=== PATIENT | female | born 1955 | race Caucasian/White ===

== ENCOUNTER 2019-03-20 10:04 | Day surgery (SDC) | payer OTHER ==
[2019-03-20] MEDS ORDERED: PROPOFOL 100 ML (12:33)
[2019-03-20] MEDS ORDERED: FENTAnyl 50 MCG/ML VIAL (12:34)
[2019-03-20] MEDS ORDERED: LIDOCAINE 2% (SDV) 5 ML INJ (12:34)
[2019-03-20] MEDS: CEFAZOLIN 2 GM/50 ML (PMX) 50 ML IVPB (12:40)
[2019-03-20] MEDS ORDERED: CEFAZOLIN 1 GM INJ (12:51)
[2019-03-20] MEDS: BUPIVACAINE 0.25% (MPF) 30 ML INJ (13:05)
[2019-03-20 13:13] LABS: ADD MAN DIFF? NO
[2019-03-20 13:16] LABS: WHITE BLOOD COUNT 5.2 10^3/ul (4.8-10.8)
[2019-03-20 13:16] LABS: BASOPHILS % 0.6 % (0.0-2.0); EOSINOPHILS # 0.2 10^3/ul (0.0-0.5); EOSINOPHILS % 2.9 % (0.0-7.0); HEMATOCRIT 39.5 % (37.0-47.0); HEMOGLOBIN 13.2 g/dl (12.0-16.0); LYMPHOCYTES # 1.7 10^3/ul (0.8-2.9); LYMPHOCYTES % 32.6 % (15.0-51.0); MEAN CORPUSCULAR HEMOGLOBIN 30.3 pg (29.0-33.0); MEAN CORPUSCULAR HGB CONC 33.4 g/dl (32.0-37.0); MEAN CORPUSCULAR VOLUME 90.8 fl (82.0-101.0); MEAN PLATELET VOLUME 9.5 fl (7.4-10.4); MONOCYTE # 0.5 10^3/ul (0.3-0.9); MONOCYTES % 8.6 % (0.0-11.0); NEUTROPHIL # 2.9 10^3/ul (1.6-7.5); NEUTROPHILS % 54.9 % (39.0-77.0); PLATELET COUNT 281 10^3/UL (140-415); RED BLOOD COUNT 4.35 10^6/ul (4.20-5.40); RED CELL DISTRIBUTION WIDTH 14.1 % (11.5-14.5)
[2019-03-20 13:36] LABS: INR 0.93; PROTIME 12.6 Sec (11.9-14.9)
[2019-03-20 13:41] LABS: ALANINE AMINOTRANSFERASE 36 IU/L (13-69); ALBUMIN 4.2 g/dl (3.3-4.9); ALKALINE PHOSPHATASE 136 IU/L (42-121); ANION GAP 9 (5-13); ASPARTATE AMINO TRANSFERASE 21 IU/L (15-46); BILIRUBIN,INDIRECT 0.6 mg/dl (0-1.1); BILIRUBIN,TOTAL 0.6 mg/dl (0.2-1.3); BLOOD UREA NITROGEN 13 mg/dl (7-20); CALCIUM 9.5 mg/dl (8.4-10.2); CARBON DIOXIDE 25 mmol/L (21-31); CHLORIDE 108 mmol/L (97-110); CREATININE 0.57 mg/dl (0.44-1.00); Estimated GFR > 60 mL/min (>60); GLUCOSE 88 mg/dl (70-220); POTASSIUM 3.9 mmol/L (3.5-5.1); SODIUM 142 mmol/L (135-144); TOTAL PROTEIN 7.2 g/dl (6.1-8.1)
[2019-03-20 13:53] LABS: PARTIAL THROMBOPLASTIN TIME 35.4 Sec (23.0-35.0)
[2019-03-20] MEDS ORDERED: LABETALOL HCL 20MG INJ IV (14:00)
[2019-03-20] MEDS ORDERED: hydrALAzine 20 MG INJ IV (14:00)
[2019-03-20] MEDS ORDERED: METOCLOPRAMIDE 10 MG INJ IV (14:00)
[2019-03-20] MEDS ORDERED: HYDROCODONE/APAP (5/325) TAB PO (14:00)
[2019-03-20] MEDS ORDERED: ONDANSETRON 4 MG INJ IV ×2 (14:00)
[2019-03-20] MEDS ORDERED: KETOROLAC 30 MG INJ IV (14:00)
[2019-03-20] MEDS ORDERED: FENTAnyl 50 MCG/ML VIAL IV ×2 (14:00)
[2019-03-20] MEDS ORDERED: ALBUTEROL 0.083% (NEB) 2.5 MG/3 ML AMP HHN (14:00)
[2019-03-20] MEDS ORDERED: ACETAMINOPHEN 325 MG TAB PO (14:00)
[2019-03-20] MEDS ORDERED: DIPHENHYDRAMINE 50 MG INJ IV (14:00)
[2019-03-20] MEDS ORDERED: MIDAZOLAM 1 MG/ML 2 ML INJ IV (14:00)
[2019-03-20] MEDS ORDERED: EPHEDrine 25 MG/5 ML SYG IV (14:00)
[2019-03-20] MEDS ORDERED: MEPERIDINE 25 MG INJ IV (14:00)
[2019-03-20] MEDS ORDERED: OXYCODONE/ACETAMINOPHEN (5/325) TAB PO ×2 (14:00)
[2019-03-20] MEDS: morphine 2 MG INJ IV (14:04)
[2019-03-20] MEDS: FENTAnyl 50 MCG/ML VIAL IV ×2 (14:11→14:18)
[2019-03-20] MEDS: SOD CHLORIDE 0.9% 1,000 ML IV (14:19)
== END 2019-03-20 16:10 | disposition home or self-care (01) ==
LOC: SDS 10:04
DX: D17.21 Benign lipomatous neoplasm of skin and subcutaneous tissue of right arm (principal); I10 Essential (primary) hypertension; E78.5 Hyperlipidemia, unspecified
CPT/HCPCS: 23071; 80053; 85025; 85610; 85730; 88307